=== PATIENT | male | born 1950 | race Hispanic/Latino ===

== ENCOUNTER 2025-01-18 22:33 | Inpatient (IN) | payer OTHER ==
[2025-01-18 23:48] LABS: Absolute Lymphocytes (CBC) 2.5 K/uL (0.7-4.9); Hematocrit 41.9 % (39.6-49.0); Hemoglobin 14.2 g/dL (13.6-17.9); MCH 31.2 pg (27.0-35.0); MCHC 34.0 g/dL (32.0-36.0); MCV 91.8 fL (80-100); MPV 9.3 fL (7.6-11.3); Nucleated RBC Absolute Count 0.0 (0-0); Nucleated Red Blood Cells % 0.1 % (0-0); RBC Red Blood Cell Count 4.57 M/uL (4.33-5.43); White Blood Count 7.10 thou/uL (4.3-10.9)
[2025-01-18 23:53] LABS: PT Prothrombin Time 12.1 SECONDS (10-13.0); Protime INR 1.07
[2025-01-19 00:06] LABS: ALT/SGPT 49 U/L (16-61); AST/SGOT 20 U/L (15-37); Albumin 3.3 g/dL (3.4-5.0); Albumin/Globulin Ratio 0.9 (1.1-1.8); Alkaline Phosphatase 98 U/L (45-117); Anion Gap 8.0 mEq/L (5.0-15.0); BUN Blood Urea Nitrogen 24 mg/dL (7-18); Bilirubin Indirect, Calculated 0.2 mg/dL (0.2-0.8); Globulin 3.5 g/dL (2.3-3.5); Glucose Level 91 mg/dL (74-106); Magnesium 2.3 mg/dL (1.6-2.4); NT PRO-BNP 115 pg/mL (<450); Potassium 4.0 mEq/L (3.5-5.1); Troponin High Sensitivity 8.8 pg/mL (<58.9)
[2025-01-19] MEDS ORDERED: ACETAMINOPHEN 500 MG TAB ONE (02:05)
--- NOTE | 2025-01-19 02:49 | RAD REPORT ---
EXAM: CT Cervical Spine Without Intravenous Contrast CLINICAL HISTORY: neck pain TECHNIQUE: Axial computed tomography images of the cervical spine without intravenous contrast. Sagittal and c oronal reformatted images were created and reviewed. This CT exam was performed using one or more of the following dose reduction techniques: automated exposure control, adjustment of the mA and/or kV according to patient size, and/or use of iterative reconstruction technique. COMPARISON: No relevant prior studies available. FINDINGS: Vertebrae: Grade 1 retrolisthesis of C5 on C6 and C6 on C7 and grade 1 anterolisthesis of C7 on T1, T1 on T2 and T2 on T3. No acute fracture or subluxation. Discs/spinal canal/neural foramina: Multilevel degenerative changes most pronounced, severe at C5-C 6 and C6-C7. Moderate to severe multilevel facet arthropathy most pronounced on the right at C3-C4 and on the left C4-C5. Severe foraminal compromise on the right at C2-C3 and bilaterally at C5-C6 and C6-C7. No critical canal stenosis. Soft tissues: Unremarkable. IMPRESSION: Multilevel degenerative changes. No critical canal stenosis. Electronically signed by: Aries Montes De Oca MD 01/19/2025 02:46 AM CDT Due to temporary technical issues with the PACS/REBIScan reporting system, reports are being stanislaw d by the in-house radiologist without review as a courtesy to ensure prompt reporting the interpreting radiologist is fully responsible for the content of the report. Transcribed Date/Time: 01/19/2025 2:49 AM
--- NOTE | 2025-01-19 03:16 | RAD REPORT ---
EXAM DESCRIPTION: CT CHEST ABDOMEN PELVIS ANGIOGRAPHY WITH IV CONTRAST 01/19/2025 2:44 AM CDT CLINICAL HISTORY: 74 years, Male, Chest pain. COMPARISON: CTA Chest Abdomen Pelvis 07/26/2023. PROCEDURE: Multiple transaxial tomograms of the thoracic and abdominal aorta were performed utilizing 3 mm sligh t thickness at 3 mm interval reconstruction, from the lung apices to the ischial tuberosities, before and after the administration of large bolus of IV contrast for complete opacification of the t horacic, abdominal aorta and iliac arteries. 2-D and 3-D multiplanar reformats, volume rendering technique and maximum intensity projection images were generated and reviewed. An individualized dose optimization technique, Automated Exposure Control, was utilized for the perfo rmed procedure. Findings: Thoracic aorta/great vessels: The ascending thoracic aorta demonstrate minimal dilatation measuring 4.3 x 4.1 cm on image 45. There is normal branching pattern of the great vessels with no evidence for significant proximal stenosis and/or occlusion. There is sternotomy wires with findings suggesting most likely DE [place] TORRE graft and saphenous graft with presence of stenting. Aorta/iliac arteries: There is a infrarenal abdominal aortic aneurysm below the level of the inferior mesenteric artery reilly suring 4.3 x 4.3 cm in image 132. No significant mural thrombus and/or extravasation of contrast. Right common iliac artery demonstrated dilatation measuring 2.5 as centimeters on axial image 156. Le ft common iliac artery demonstrated to be within normal limits. Minimal peripheral atheromatous plaque internal iliac arteries. The origin-proximal aspect of the celiac trunk, superior mesenteric artery demonstrate minimal periph eral atheromatous plaque with no definitive evidence for significant stenosis. There are single bilateral renal arteries with the presence of minimal peripheral atheromatous plaque at the origin/proximal aspect with no evidence for significant stenosis. Chest: Lower neck: Visualized thyroid gland and soft tissues are normal. No adenopathy. Lungs: The lung parenchyma demonstrate minimal dependent atelectatic changes posterior segment bilate ral lower lobes. No evidence of airspace or interstitial process. No significant pulmonary nodules and/or masses identified. No focal areas of consolidation. Airways: The trachea mainstem bronchus demonstrate to be unremarkable. Pleural: There are no pleural effusion. No evidence for pneumothorax. Hemidiaphragms are normally pos itioned. Mediastinum and lymph nodes: No significant mediastinal and/or hilar lymphadenopathy. The axillary re gions demonstrate to be clear. Heart: Normal size. No pericardial thickening or effusion. Coronary: Calcified coronary arteries with pericardial clips corresponding to most likely CABG. Pulmonary arteries: The central pulmonary arteries demonstrate to be within normal limits. No evidenc e for significant central filling defect to suggest pulmonary embolus. Osseous structures and chest wall: The thoracic spine demonstrate to be mildly demineralized. No evid ence for compression deformities and/or significant skeletal lesions. Abdomen and pelvis: Liver: The liver demonstrated presence of decreased attenuation corresponding to mild fatty infiltrat ion. Gallbladder: The gallbladder demonstrate to be normal. Adrenal glands: The adrenal glands demonstrate to be normal. Pancreas: The pancreas demonstrate to be normal. Spleen: The spleen demonstrate to be within normal limits. Kidneys: The kidneys demonstrate normal uptake of contrast media. There is no evidence for nephroli thiasis and/or hydronephrosis. There is a lower pole left renal cyst measuring 1.5 cm on axial image 121 GI: Grossly the unopacified stomach, small bowel and large bowel demonstrate to be within normal limi ts. No evidence for bowel dilatation and/or free air. The appendix is normal. The left-sided colon demonstrate to be decompressed with no gross abnormalities. : The urinary bladder demonstrate to be partially distended with no gross abnormalities. Genitalia: The prostate gland demonstrate to be prominent perhaps related to BPH.. Retroperitoneum: There is no retroperitoneal lymphadenopathy. There is no evidence for ascites and/or abnormal fluid collections. Bones: The bones demonstrate to be demineralized. The lumbar spine demonstrate degenerative changes t hroughout. Soft tissues: There is a right inguinal hernia containing sigmoid colon and omentum. IMPRESSION: Abdominal aortic aneurysm measuring 4.3 cm. Recommend CTA or MRA, as appropriate, in 12 months and re ferral to vascular specialist. Reference: Journal of Vascular Surgery 67.1 (2018): 2-77. J Am Obed Radiol 2013;10:789-794. 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 Mild dilatation of the ascending thoracic aorta measuring 4.3 x 4.1 cm. Right inguinal hernia containing sigmoid colon and omental. Mild fatty infiltration of the liver. Left Bosniak I benign renal cyst measuring 1.5 cm. No follow-up imaging is recommended. JACR 2018 May ; 264-273, Management of the Incidental Renal Mass on CT, [employer] 2020; 814-848, Bosniak Classification of Cystic Renal Masses, Version 2019. Prominent prostate gland perhaps related to BPH. Electronically signed by: Enrique Lyon MD 01/19/2025 03:04 AM CDT RP Due to temporary technical issues with the PACS/YourNextLeap reporting system, reports are being stanislaw d by the in-house radiologist without review as a courtesy to ensure prompt reporting the interpreting radiologist is fully responsible for the content of the report. Transcribed Date/Time: 01/19/2025 3:15 AM
--- NOTE | 2025-01-19 04:07 | EDPHYS ---
Physician Documentation [facility] Name: Wagner Powers Age: 74 yrs Sex: Male : 1950 Arrival Date: 01/18/2025 Time: 22:42 Bed 14 Private MD: ED Physician Baljinder Dumont HPI: 01/18 22:56 This 74 yrs old Male presents to ER via Unassigned with complaints of Chest sp4 Pain, Shortness Of Breath. 01/19 20:37 Patient with history of significant medical problems, history of iliac aneurysm, sp4 history of GI bleed, history of hyperlipidemia hypertension, history of CABG, history of left iliac aneurysm surgery presents with persistent chest pain. 20:38 Patient reports chest pains onset 1 week ago associated with dyspnea. sp4 Historical: - Allergies: 01/18 23:00 No Known Allergies; rg5 - PMHx: 23:00 GI Bleed; Hyperlipidemia; Hypertension; rg5 - PSHx: 23:00 Coronary artery bypass graft; rg5 - Immunization history:: Adult Immunizations up to date. - Infectious Disease History:: Denies. - Social history:: Smoking status: Patient denies any tobacco usage or history of. - Family history:: not pertinent. ROS: 01/19 20:38 Constitutional: Negative for fever, chills, and weight loss, positive for intermittent sp4 chest pains for 1 week associated with dyspnea All other systems are negative, Exam: 20:38 Constitutional: This is a well developed, well nourished patient who is awake, alert, sp4 and in no acute distress. Head/Face: Normocephalic, atraumatic. Eyes: Pupils equal round and reactive to light, extra-ocular motions intact. Lids and lashes normal. Conjunctiva and sclera are not injected. Cornea within normal limits. Periorbital areas with no swelling, redness, or edema. ENT: Nares patent. No nasal discharge, no septal abnormalities noted. Tympanic membranes are normal and external auditory canals are clear. Oropharynx with no redness, swelling, or masses, exudates, or evidence of obstruction, uvula midline. Mucous membranes moist. Neck: Trachea midline, no thyromegaly or masses palpated, and no cervical lymphadenopathy. Supple, full range of motion without nuchal rigidity, or vertebral point tenderness. Chest/axilla: Normal chest wall appearance and motion. Nontender with no deformity. No lesions are appreciated. Cardiovascular: Regular rate and rhythm with a normal S1 and S2. No gallops, murmurs, or rubs. No pulse deficits. Respiratory: Lungs have equal breath sounds bilaterally, clear to auscultation and percussion. No rales, rhonchi or wheezes noted. No increased work of breathing, no retractions or nasal flaring. Abdomen/GI: Soft, with normal bowel sounds. No distension or tympany. No guarding or rebound. No evidence of tenderness throughout. Back: No spinal tenderness. No costovertebral tenderness. Skin: Warm, dry with normal turgor. Normal color with no rashes, no lesions, and no evidence of cellulitis. MS/ Extremity: Pulses equal, no cyanosis. Neurovascular intact. Full, normal range of motion. Neuro: Awake and alert, GCS 15, oriented to person, place, time, and situation. Cranial nerves II-XII grossly intact. Motor strength 5/5 in all extremities. Sensory grossly intact. Psych: Awake, alert, with orientation to person, place and time. Behavior, mood, and affect are within normal limits 20:38 ECG was reviewed by the Attending Physician. EKG at 2253 EKG reveals normal sinus rhythm rate 63, right bundle branch block, left axis deviation. No ST elevation or depression. Left ventricular hypertrophy Vital Signs: 00:00 BP 118 / 74; Pulse 60; Resp 18; Pulse Ox 96% ; rg5 01:03 BP 123 / 75; Pulse 58; Resp 18; Pulse Ox 96% ; cp4 02:23 BP 114 / 77; Pulse 54; Resp 18; Pulse Ox 98% ; cp4 02:56 BP 123 / 72; Pulse 57; Resp 16; Temp 97.9; Pulse Ox 97% ; Pain 0/10; cg 04:00 BP 145 / 77; Pulse 56; Resp 16; Pulse Ox 97% ; cp4 05:00 BP 138 / 86; Pulse 59; Resp 16; Pulse Ox 99% ; cp4 02:56 Pain Scale: Adult cg Langtry Coma Score: 20:38 Eye Response: spontaneous(4). Motor Response: obeys commands(6). Verbal Response: sp4 oriented(5). Total: 15. MDM: 00:58 Medical Screening Exam initiated sp4 04:07 ED course: CTA - IMPRESSION: Abdominal aortic aneurysm measuring 4.3 cm. Recommend CTA sp4 or MRA, as appropriate, in 12 months and referral to vascular specialist. Reference: Journal of Vascular Surgery 67.1 (2018): 2-77. J Am Obed Radiol 2013;10:789-794. 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 Mild dilatation of the ascending thoracic aorta measuring 4.3 x 4.1 cm. Right inguinal hernia containing sigmoid colon and omental. Mild fatty infiltration of the liver. Left Bosniak I benign renal cyst measuring 1.5 cm. No follow-up imaging is recommended. Prominent prostate gland perhaps related to BPH. . ED course: COMPARISON: No relevant prior studies available. FINDINGS: Vertebrae: Grade 1 retrolisthesis of C5 on C6 and C6 on C7 and grade 1 anterolisthesis of C7 on T1, T1 on T2 and T2 on T3. No acute fracture or subluxation. Discs/spinal canal/neural foramina: Multilevel degenerative changes most pronounced, severe at C5-C6 and C6-C7. Moderate to severe multilevel facet arthropathy most pronounced on the right at C3-C4 and on the left C4-C5. Severe foraminal compromise on the right at C2-C3 and bilaterally at C5-C6 and C6-C7. No critical canal stenosis. Soft tissues: Unremarkable. IMPRESSION: Multilevel degenerative changes. No critical canal stenosis.. 20:38 Differential diagnosis: acute myocardial infarction, acute pericarditis, anxiety, sp4 coronary artery disease chest wall pain, congestive heart failure esophagitis, gastritis, gastroesophageal reflux disease (GERD), herpes zoster. HEART Score: History: Moderately Suspicious (1), ECG: Non specific repolarization disturbance / LBTB / PM (1), Age: > or = 65 years (2), Risk Factors: > or = 3 Risk factors for atherosclerotic disease (2), Troponin: < or = 1 x Normal Limit (0), Total Score = 6. The patient was not given aspirin in the Emergency Department. Patient reports taking aspirin within the past 24 hours. Data reviewed: vital signs, nurses notes, old medical records, lab test result(s), EKG, radiologic studies. Consideration of Admission/Observation Patient was admitted/placed on observation. Escalation of care including admission/observation considered. Management of patient was discussed with the following: Hospitalist: Jb REID . 01/18 22:57 Order name: Basic Metabolic Panel; Complete Time: 01:06 sp4 01/18 22:57 Order name: CBC with Diff; Complete Time: 01:06 sp4 01/18 22:57 Order name: LFT's; Complete Time: 01:06 sp4 01/18 22:57 Order name: Magnesium; Complete Time: 01:06 sp4 01/18 22:57 Order name: NT PRO-BNP; Complete Time: 01:06 sp4 01/18 22:57 Order name: PT-INR; Complete Time: 01:06 sp4 01/18 22:57 Order name: Troponin HS; Complete Time: 01:06 sp4 01/19 04:45 Order name: CBC with Automated Diff EDMS 01/19 04:45 Order name: CBC with Automated Diff EDMS 01/19 04:45 Order name: Comprehensive Metabolic Panel EDMS 01/19 04:45 Order name: Comprehensive Metabolic Panel EDMS 01/19 04:45 Order name: Troponin High Sensitivity EDMS 01/19 04:45 Order name: Troponin High Sensitivity EDMS 01/19 04:45 Order name: Troponin High Sensitivity EDMS 01/19 04:45 Order name: Troponin High Sensitivity EDMS 01/19 04:45 Order name: Troponin High Sensitivity EDMS 01/19 04:45 Order name: Troponin High Sensitivity EDMS 01/18 22:57 Order name: CT Aorta for Dissection; Complete Time: 03:53 sp4 01/18 22:57 Order name: CT C Spine; Complete Time: 03:53 sp4 01/18 22:57 Order name: Cardiac monitoring; Complete Time: 23:23 sp4 01/18 22:57 Order name: EKG - Nurse/Tech; Complete Time: 23:23 sp4 01/18 22:57 Order name: IV Saline Lock; Complete Time: 23:23 sp4 01/18 22:57 Order name: Labs collected and sent; Complete Time: 23:23 sp4 01/18 22:57 Order name: O2 Per Protocol; Complete Time: 23:22 sp4 01/18 22:57 Order name: O2 Sat Monitoring; Complete Time: 23:22 sp4 EC:38 Rate is 63 beats/min. Rhythm is regular, Normal Sinus Rhythm. Left axis deviation sp4 noted. IL interval is normal. QRS interval is prolonged. QT interval is normal. No Q waves. T waves are Normal. No ST changes noted. Clinical impression: No evidence of ischemia. Interpreted by me. Reviewed by me. Administered Medications: 01/18 23:21 Drug: NS 0.9% IV 1000 ml IV at 125 ml/hr Per protocol; to be given at 125 ml / hour rg5 Route: IV; Rate: 125 ml/hr; Site: right forearm; 01/19 05:30 Follow up: Response: No adverse reaction; IV Status: Completed infusion cp4 02:13 Drug: Acetaminophen PO 1000 mg PO once Route: PO; cg 04:55 Follow up: Response: No adverse reaction; Pain is decreased cp4 Disposition Summary: 01/19/25 04:06 Hospitalization Ordered Notes: Hospitalization Status: Inpatient Admission sp4 Provider: Angel Muhammad sp4 Location: Telemetry/[facility]Sur (Inpatient) sp4 Condition: Stable sp4 Problem: new sp4 Symptoms: have improved sp4 Bed/Room Type: Standard sp4 Room Assignment: 428(01/19/25 04:45) cg Diagnosis - Unstable angina sp4 Forms: - Medication Reconciliation Form sp4 - SBAR form sp4 - Leadership Thank You Letter sp4 Signatures: Dispatcher [employer] Rosa Rodriguez RN RN cg Cyndie Vail RN RN vc1 Baljinder Dumont MD MD sp4 Ian Clark RN RN rg5 Caryl Santana cp4 Corrections: (The following items were deleted from the chart) 01/18 22:57 22:57 BASIC METABOLIC PANEL+C.LAB.BRZ ordered. EDMS EDMS 22:57 22:57 CBC+H.LAB.BRZ ordered. EDMS EDMS 22:57 22:57 HEPATIC FUNCTION+C.LAB.BRZ ordered. EDMS EDMS 22:57 22:57 MAGNESIUM+C.LAB.BRZ ordered. EDMS EDMS 22:57 22:57 PROBNP+C.LAB.BRZ ordered. EDMS EDMS 22:57 22:57 PROTIME (+INR)+COAG.LAB.BRZ ordered. EDMS EDMS 22:57 22:57 Troponin High Sensitivity+C.LAB.BRZ ordered. EDMS EDMS 22:57 22:57 Angio Aorta For Dissection+CT.RAD.BRZ ordered. EDMS EDMS 22:57 22:57 C Spine Wo Con+CT.RAD.BRZ ordered. EDMS EDMS 01/19 04:45 04:06 sp4 cg
--- NOTE | 2025-01-19 04:07 | ER ---
Nurse's Notes [facility] Name: Wagner Powers Age: 74 yrs Sex: Male : 1950 Arrival Date: 01/18/2025 Time: 22:42 Bed 14 Private MD: Diagnosis: Unstable angina Presentation: 01/18 22:55 Chief complaint: Patient states: patient compliants of chest pain that is getting worst rg5 everyday for a week now and also feels short of breath. 22:55 Coronavirus screen: Client denies travel out of the [place] in the last 14 days. Ebola rg5 Screen: Patient negative for fever greater than or equal to 101.5 degrees Fahrenheit, and additional compatible Ebola Virus Disease symptoms Patient denies exposure to infectious person. Patient denies travel to an Ebola-affected area in the 21 days before illness onset. Initial Sepsis Screen: Does the patient meet any 2 criteria? No. Patient's initial sepsis screen is negative. Does the patient have a suspected source of infection? No. Patient's initial sepsis screen is negative. Risk Assessment: Do you want to hurt yourself or someone else? Patient reports no desire to harm self or others. Onset of symptoms was January 18, 2025. 22:55 Method Of Arrival: Ambulatory rg5 22:55 Acuity: ANABELL 3 rg5 Triage Assessment: 23:00 General: Appears in no apparent distress. Behavior is calm, cooperative, appropriate rg5 for age. Pain: Complains of pain in chest Quality of pain is described as dull, pressure, Pain began gradually. EENT: No deficits noted. Neuro: Level of Consciousness is awake, alert, obeys commands, Oriented to person, place, time, situation. Cardiovascular: Reports chest pain, shortness of breath. Respiratory: Airway is patent Respiratory effort is even, unlabored. GI: Abdomen is flat, non-distended. : No signs and/or symptoms were reported regarding the genitourinary system. Derm: Skin is intact, Skin is dry, Skin is normal. Musculoskeletal: Circulation, motion, and sensation intact. Range of motion: intact in all extremities. Historical: - Allergies: 23:00 No Known Allergies; rg5 - PMHx: 23:00 GI Bleed; Hyperlipidemia; Hypertension; rg5 - PSHx: 23:00 Coronary artery bypass graft; rg5 - Immunization history:: Adult Immunizations up to date. - Infectious Disease History:: Denies. - Social history:: Smoking status: Patient denies any tobacco usage or history of. - Family history:: not pertinent. Screenin:00 [facility] ED Fall Risk Assessment (Adult) History of falling in the last 3 months, rg5 including since admission No falls in past 3 months (0 pts) Confusion or Disorientation No (0 pts) Intoxicated or Sedated No (0 pts) Impaired Gait No (0 pts) Mobility Assist Device Used No (0 pt) Altered Elimination No (0 pt) Score/Fall Risk Level 0 - 2 = Low Risk Oriented to surroundings, Maintained a safe environment. Abuse screen: Denies threats or abuse. Nutritional screening: No deficits noted. Tuberculosis screening: No symptoms or risk factors identified. Assessment: 23:00 Pain: Complains of pain in chest Pain does not radiate. Quality of pain is described as rg5 aching. 01/19 00:00 Reassessment: No changes from previously documented assessment. Patient and/or family rg5 updated on plan of care and expected duration. Pain level reassessed. Patient is alert, oriented x 3, equal unlabored respirations, skin warm/dry/pink. 01:02 Reassessment: Patient appears in no apparent distress at this time. No changes from cp4 previously documented assessment. Patient and/or family updated on plan of care and expected duration. Pain level reassessed. Patient is alert, oriented x 3, equal unlabored respirations, skin warm/dry/pink. 02:00 Reassessment: Patient appears in no apparent distress at this time. Patient and/or cp4 family updated on plan of care and expected duration. Pain level reassessed. Patient is alert, oriented x 3, equal unlabored respirations, skin warm/dry/pink. 03:00 Reassessment: Patient appears in no apparent distress at this time. Patient and/or cp4 family updated on plan of care and expected duration. Pain level reassessed. Patient is alert, oriented x 3, equal unlabored respirations, skin warm/dry/pink. Vital Signs: 00:00 BP 118 / 74; Pulse 60; Resp 18; Pulse Ox 96% ; rg5 01:03 BP 123 / 75; Pulse 58; Resp 18; Pulse Ox 96% ; cp4 02:23 BP 114 / 77; Pulse 54; Resp 18; Pulse Ox 98% ; cp4 02:56 BP 123 / 72; Pulse 57; Resp 16; Temp 97.9; Pulse Ox 97% ; Pain 0/10; cg 04:00 BP 145 / 77; Pulse 56; Resp 16; Pulse Ox 97% ; cp4 05:00 BP 138 / 86; Pulse 59; Resp 16; Pulse Ox 99% ; cp4 02:56 Pain Scale: Adult cg Kaiser Coma Score: 20:38 Eye Response: spontaneous(4). Motor Response: obeys commands(6). Verbal Response: sp4 oriented(5). Total: 15. ED Course: 01/18 22:55 Patient arrived in ED. rg5 22:56 Baljinder Dumont MD is Attending Physician. sp4 23:00 Arm band placed on. EKG completed in triage. Results shown to MD. rg5 23:00 Patient has correct armband on for positive identification. Bed in low position. Call rg5 light in reach. Side rails up X 1. Adult w/ patient. Client placed on continuous cardiac and pulse oximetry monitoring. NIBP monitoring applied. monitoring and evaluation advisor on. Pulse ox on. NIBP on. Door closed. Noise minimized. Warm blanket given. 23:00 No provider procedures requiring assistance completed. Inserted saline lock: 22 gauge rg5 in right forearm, using aseptic technique. Blood collected. Flushed with 10 mL NS. Patient maintains SpO2 saturation greater than 95% on room air. 23:21 Ian Clark, RN is Primary Nurse. rg5 01/19 00:10 Triage completed. rg5 01:00 CT Aorta for Dissection In Process Unspecified. EDMS 01:00 CT C Spine In Process Unspecified. EDMS 04:06 Angel Muhammad MD is Hospitalizing Provider. sp4 05:29 Provided Education on: admission. cp4 05:29 Patient admitted, IV remains in place. cp4 Administered Medications: 01/18 23:21 Drug: NS 0.9% IV 1000 ml IV at 125 ml/hr Per protocol; to be given at 125 ml / hour rg5 Route: IV; Rate: 125 ml/hr; Site: right forearm; 01/19 05:30 Follow up: Response: No adverse reaction; IV Status: Completed infusion cp4 02:13 Drug: Acetaminophen PO 1000 mg PO once Route: PO; rodrigo 04:55 Follow up: Response: No adverse reaction; Pain is decreased cp4 Medication: 01/18 23:00 VIS not applicable for this client. rg5 Outcome: 01/19 04:06 Decision to Hospitalize by Provider. sp4 05:29 Admitted to Med/surg accompanied by nurse, via stretcher, room 428, with chart, cp4 05:29 Condition: stable 05:29 Instructed on the need for admit, 05:29 Patient left the ED. vc1 Signatures: Dispatcher [employer] Rosa Rodriguez, RN RN Cyndie Neely RN RN vc1 Baljinder Dumont MD MD sp4 Caryl Santana cp4 Ian Clark, RN RN rg5
[2025-01-19] MEDS ORDERED: ONDANSETRON 4 MG/2 ML VIAL IV PRN (04:41)
[2025-01-19 05:22] VITALS: BMI 25.8
[2025-01-19] MEDS: ACETAMINOPHEN 325 MG TABLET PO PRN (05:55)
--- NOTE | 2025-01-19 13:43 | P.CNS ---
Date of Consult: 01/19/25 Reason for Consult: He has been Requesting Physician: Froylan Muhammad Chief Complaint: Chest pain History of Present Illness: 74-year-old male with PMH HTN, HLD, AAA, CAD s/p 3vCABG (9094) and [place] (2021) s/p PCI x 1, who presents with chest pain. Patient reports episode of chest pain yesterday, intermittent, left-sided, nonradiating, which occurred while he was walking. Pain lasted for 30-45 minutes. Now chest pain-free. No shortness of breath. High-sensitivity cardiac troponin and NT proBNP normal. ECG showed SR with RBBB. 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 Patient's family is at bedside. Patient follows up with a railroad crane operator at [facility] in [place], [place] (Dr. Acosta). Allergies No Known Allergies Allergy (Verified 06/24/15 11:32) Home medications list reviewed: Yes Home Medications: Metoprolol Tartrate [Lopressor*] 25 mg PO BID 06/23/15 Aspirin [Children's Aspirin] 81 mg PO DAILY 01/19/25 Clopidogrel Bisulfate [Plavix] 75 mg PO DAILY 01/19/25 Simvastatin 80 mg PO BEDTIME 01/19/25 lisinopriL [Lisinopril] 5 mg PO DAILY 01/19/25 methocarbamoL [Robaxin] 750 mg PO BIDP PRN 01/19/25 - Past Medical/Surgical History Diabetic: No -: hypertension -: hyperlipidemis -: Triple bypass 1994 -: right knee ligament surgery -: heart stents - Social History Smoking Status: Unknown if ever smoked Alcohol use: No CD- Drugs: No Caffeine use: Yes Place of Residence: Home Physical Examination Temp Pulse Resp BP Pulse Ox 97.7 F 61 18 149/82 H 97 01/19/25 12:00 01/19/25 12:00 01/19/25 12:00 01/19/25 12:00 01/19/25 12:00 General: In no apparent distress, Oriented x3 HEENT: Atraumatic, Normocephalic, EOMI Neck: 2+ carotid pulse no bruit, JVD not distended Respiratory: Clear to auscultation bilaterally Cardiovascular: No edema, Regular rate/rhythm, Normal S1 S2, Systolic murmur Capillary refill: <2 Seconds Gastrointestinal: Normal bowel sounds Musculoskeletal: No clubbing, No swelling Integumentary: No rashes Neurological: Normal speech Laboratory Data (last 24 hrs) 01/18/25 01/18/25 01/18/25 23:15 23:15 23:15 WBC 7.10 Hgb 14.2 Hct 41.9 Plt Count 154 PT 12.1 INR 1.07 Sodium 137 Potassium 4.0 BUN 24 H Creatinine 1.10 Glucose 91 Magnesium 2.3 Total Bilirubin 0.4 AST 20 ALT 49 Alkaline Phosphatase 98 Imagings Data: ECG and imaging reviewed - Problems (1) Coronary artery disease involving [place] heart with angina pectoris Current Visit: Yes Status: Acute Plan: Patient has history of significant CAD including 3vCABG (1994) and [place] (2021) s/p PCI x 1. Details of his prior interventions unknown (follows up with a railroad crane operator at [facility], Dr. Acosta). High-sensitivity cardiac troponin negative. Continue DAPT with aspirin 81 mg daily and clopidogrel 75 mg daily. Continue statin. Given his risk factors and likely cardiac etiology of his chest discomfort, recommend ischemia guided approach with nuclear stress test. Further recommendations pending results of stress test. Obtain echocardiogram. Qualifiers: Coronary Disease-Associated Artery/Lesion type: unspecified vessel or lesion type Qualified Code(s): I25.119 - Atherosclerotic heart disease of [place] coronary artery with unspecified angina pectoris (2) Hypertension Current Visit: Yes Status: Chronic Plan: Blood pressure is reasonably controlled. Continue home antihypertensive medications, adjust as needed based on blood pressure and tolerance. Blood pressure goal <130/80 mmHg. Qualifiers: Hypertension type: primary hypertension Qualified Code(s): I10 - Essential (primary) hypertension (3) Hyperlipidemia Current Visit: Yes Status: Chronic Plan: Continue statin. Goal LDL-C <70 mg/dL for high risk ASCVD. (4) Aortic aneurysm Current Visit: Yes Status: Chronic Plan: AAA 4.[address] also notable for ascending aortic dilation 4.3 cm and right KASIE aneurysm 2.5 cm. Continue to monitor clinically and with serial imaging as indicated. Continue statin. (5) Cardiac murmur Current Visit: Yes Status: Acute Plan: Systolic murmur on exam. Follow-up echocardiogram.
--- NOTE | 2025-01-19 15:29 | RAD REPORT ---
EXAMINATION: MRI CERVICAL SPINE WITHOUT CONTRAST CLINICAL INDICATION: Male, 74 years old. Radiculopathy; cord compression TECHNIQUE: Multiplanar multisequence MR images were obtained of the cervical spine without intravenou s contrast. Unless otherwise specified, incidental findings do not require dedicated imaging follow-up. [id number]. COMPARISON: CT same day FINDINGS: ALIGNMENT: Trace anterolisthesis of C4 on C5. Trace retrolisthesis of C5 on C6. 2 mm of retrolisthesi s of C6 on C7. Anterolisthesis of C7 on T1 of 2 mm. BONE: Mild endplate edema is present at the C5-6 and C6-7 levels. CORD: The cervical spinal cord is normal in size, contour and signal intensity. BRAIN: The included intracranial structures are grossly normal. The craniocervical junction is normal . SOFT TISSUE: Small simple appearing fluid collection within the paraspinal soft tissues along the C6 posterior spinous process. This is of doubtful significance. EVALUATION OF THE INDIVIDUAL LEVELS: C2-C3: Uncovertebral joint hypertrophy contributes to at least mild to moderate right neural foramina l narrowing. Left neural foramen is adequate. No central spinal stenosis. C3-C4: Uncovertebral joint hypertrophy and small posterior disc osteophyte complex results in at leas t moderate if not severe right neural foraminal narrowing. The left neural foramen is probably mildly narrowed. No significant central spinal stenosis. C4-C5: Posterior disc osteophyte complex and uncovertebral joint hypertrophy results in mild left niki ral foraminal narrowing. The right neural foramen is likely adequate. Moderate central spinal stenosis. C5-C6: Posterior disc osteophyte complex and uncovertebral joint hypertrophy results in probably ky re bilateral neural foraminal narrowing. Central spinal stenosis is mild to moderate. C6-C7: Posterior disc osteophyte complex and uncovertebral joint hypertrophy results in severe right and at least moderate left neural foraminal narrowing and moderate central spinal stenosis. C7-T1: Anterolisthesis of C7 on T1 with some uncovering of the disc results in mild central spinal st enosis. IMPRESSION: Multilevel cervical spondylosis with varying degrees of neural foraminal narrowing and central spinal stenosis. No high-grade central spinal stenosis identified. Stenosis is at most moderate at C4-5 and C6-7. No abnormal cord signal. Neural foraminal narrowing is most pronounced on the right at C3-4 and bilaterally at C5-6 and C6-7 levels. These levels would be the most likely source of a radiculopathy.
--- NOTE | 2025-01-19 17:45 | P.HP ---
Certification for Inpatient Patient admitted to: Observation With expected LOS: <2 Midnights Patient will require the following post-hospital care: None Practitioner: I am a practitioner with admitting privileges, knowledge of patient current condition, hospital course, and medical plan of care. Services: Services provided to patient in accordance with Admission requirements found in Title 42 Section 412.3 of the Code of Federal Regulations Patient History Date of Service: 01/19/25 Reason for admission: Chest pain History of Present Illness: Patient is a 74-year-old gentleman who is well-known to me from recent hospitalizations for chest discomfort. Patient was having radiation down his left arm and up the left side of the neck. Patient has history of coronary artery disease and has had a prior stent placed. Patient also has been dealing with issues with musculoskeletal pain. 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 Patient has CT angio for aortic dissection which was negative. CT of the C-spine is suggested of neuropathy. Will go ahead and get an MRI of the C-spine. Will also get cardiology consult. Patient will be admitted for inpatient hospitalization Allergies No Known Allergies Allergy (Verified 06/24/15 11:32) Home Medications: Metoprolol Tartrate [Lopressor*] 25 mg PO BID 06/23/15 Aspirin [Children's Aspirin] 81 mg PO DAILY 01/19/25 Clopidogrel Bisulfate [Plavix] 75 mg PO DAILY 01/19/25 Simvastatin 80 mg PO BEDTIME 01/19/25 lisinopriL [Lisinopril] 5 mg PO DAILY 01/19/25 methocarbamoL [Robaxin] 750 mg PO BIDP PRN 01/19/25 - Past Medical/Surgical History Has patient received pneumonia vaccine in the past: Yes Diabetic: No -: hypertension -: hyperlipidemis -: CAD w/ stent -: Triple bypass 1994 -: right knee ligament surgery -: heart stents - Family History Father Family History: Reviewed- Non-Contributory - Social History Smoking Status: Former smoker Alcohol use: No CD- Drugs: No Caffeine use: Yes Place of Residence: Home Review of Systems 10-point ROS is otherwise unremarkable Physical Examination - Vital Signs Temperature: 97.7 F Blood Pressure: 135/75 Pulse: 71 Respirations: 18 Pulse Ox (%): 96 - Physical Exam General: Alert, In no apparent distress, Oriented x3 HEENT: Atraumatic, PERRLA, Mucous membr. moist/pink, EOMI, Sclerae nonicteric Neck: Supple, 2+ carotid pulse no bruit, No LAD, Without JVD or thyroid abnormality Respiratory: Clear to auscultation bilaterally, Normal air movement Cardiovascular: Regular rate/rhythm, Normal S1 S2, No murmurs Gastrointestinal: Normal bowel sounds, Soft and benign, Non-distended, No tenderness Musculoskeletal: No clubbing, No swelling, No tenderness Integumentary: No rashes Neurological: Normal gait, Normal speech, Normal strength at 5/5 x4 extr, Normal tone, Sensation intact, Cranial nerves 3-12 intact, Normal affect Lymphatics: No axilla or inguinal lymphadenopathy - Studies Laboratory Data (last 24 hrs) 01/18/25 01/18/25 01/18/25 23:15 23:15 23:15 WBC 7.10 Hgb 14.2 Hct 41.9 Plt Count 154 PT 12.1 INR 1.07 Sodium 137 Potassium 4.0 BUN 24 H Creatinine 1.10 Glucose 91 Magnesium 2.3 Total Bilirubin 0.4 AST 20 ALT 49 Alkaline Phosphatase 98 Assessment & Plan - Problems (Diagnosis) (1) Chest pain, rule out acute myocardial infarction Current Visit: Yes Status: Acute (2) Coronary artery disease involving [place] heart with angina pectoris Current Visit: Yes Status: Acute Qualifiers: Coronary Disease-Associated Artery/Lesion type: unspecified vessel or lesion type Qualified Code(s): I25.119 - Atherosclerotic heart disease of [place] coronary artery with unspecified angina pectoris (3) Aortic aneurysm Current Visit: Yes Status: Chronic (4) Hyperlipidemia Current Visit: Yes Status: Chronic (5) Hypertension Current Visit: Yes Status: Chronic Qualifiers: Hypertension type: primary hypertension Qualified Code(s): I10 - Essential (primary) hypertension - Plan Plan: 1. Chest pain rule out acute coronary syndrome; continue with serial troponins and EKG. Cardiology recommending stress test prior to discharge. Echocardiogram is pending as well. Patient will be admitted for inpatient hospitalization 2. History of neck pain which symptoms sound like radiculopathy with electricity type shooting pain down the left arm. MRI of C-spine is pending. 3. History of aneurysm of the abdominal aorta as well as ascending aorta and iliac artery. Will continue with conservative management 4. GI DVT prophylaxis Discharge Plan: Home Plan to discharge in: Greater than 2 days - Advance Directives Does patient have a Living Will: No Does patient have a Durable POA for Healthcare: No - Code Status/Comfort Care Code Status Assessed: Yes Code Status: Full Code Critical Care: No Time Spent Managing PTS Care (In Minutes): 45
[2025-01-19] MEDS: METOPROLOL TAR 25 MG TAB PO SCH (20:58)
[2025-01-19] MEDS: ATORVASTATIN 40 MG TAB PO SCH (20:58)
[2025-01-19] MEDS ORDERED: HOME MED 1 EA UNK (Simvastatin [Simvastatin] 80 MG Tablet) PO SCH (21:00)
[2025-01-20 07:05] LABS: Absolute Lymphocytes (CBC) 1.9 K/uL (0.7-4.9); Hematocrit 44.0 % (39.6-49.0); Hemoglobin 15.2 g/dL (13.6-17.9); MCH 31.4 pg (27.0-35.0); MCHC 34.5 g/dL (32.0-36.0); MCV 90.9 fL (80-100); MPV 9.1 fL (7.6-11.3); Nucleated RBC Absolute Count 0.0 (0-0); Nucleated Red Blood Cells % 0.0 % (0-0); RBC Red Blood Cell Count 4.84 M/uL (4.33-5.43); White Blood Count 7.90 thou/uL (4.3-10.9)
[2025-01-20 07:36] LABS: ALT/SGPT 38.0 U/L (16-61); AST/SGOT 16.0 U/L (15-37); Albumin 3.3 g/dL (3.4-5.0); Albumin/Globulin Ratio 0.9 (1.1-1.8); Alkaline Phosphatase 89.0 U/L (45-117); Anion Gap 7.1 mEq/L (5.0-15.0); BUN Blood Urea Nitrogen 18.0 mg/dL (7-18); Globulin 3.5 g/dL (2.3-3.5); Glucose Level 94.0 mg/dL (74-106); Potassium 4.1 mEq/L (3.5-5.1)
[2025-01-20] MEDS: CLOPIDOGREL 75 MG TABLET PO SCH (09:00)
[2025-01-20] MEDS: ASPIRIN 81 MG CHEWABLE TABLET PO SCH (09:00)
[2025-01-20] MEDS ORDERED: REGADENOSON 0.4 MG/5 ML SYR IV ONE (10:08)
--- NOTE | 2025-01-20 11:02 | P.PN ---
Subjective Date of Service: 01/20/25 Chief Complaint: Chest pain Doing well. No active chest pain. Family at bedside. Stress test pending today. Physical Examination - Vital Signs Temperature: 97.5 F Blood Pressure: 143/83 Pulse: 72 Respirations: 16 Pulse Ox (%): 94 - Physical Exam General: Alert, In no apparent distress, Oriented x3 HEENT: Atraumatic, Normocephalic, EOMI Neck: Supple, JVD not distended Respiratory: Clear to auscultation bilaterally Cardiovascular: No edema, Normal pulses, Regular rate/rhythm, Normal S1 S2, Systolic murmur Capillary refill: <2 Seconds Gastrointestinal: Normal bowel sounds Musculoskeletal: No clubbing, No swelling Integumentary: No rashes Neurological: Normal speech - Studies Reviewed Imagings Data: Reviewed Assessment And Plan - Current Problems (Diagnosis) (1) Coronary artery disease involving [place] heart with angina pectoris Current Visit: Yes Status: Acute Plan: Patient has history of significant CAD including 3vCABG (1994) and [place] (2021) s/p PCI x 1. Details of his prior interventions unknown (follows up with a controls project engineer at [facility], Dr. Acosta). High-sensitivity cardiac troponin negative. Continue DAPT with aspirin 81 mg daily and clopidogrel 75 mg daily. Continue statin. Given his risk factors and likely cardiac etiology of his chest discomfort, recommend ischemia guided approach with nuclear stress test. Follow-up nuclear stress test and echocardiogram. Qualifiers: Coronary Disease-Associated Artery/Lesion type: unspecified vessel or lesion type Qualified Code(s): I25.119 - Atherosclerotic heart disease of [place] coronary artery with unspecified angina pectoris (2) Hypertension Current Visit: Yes Status: Chronic Plan: Blood pressure is reasonably controlled. Continue home antihypertensive medications, adjust as needed based on blood pressure and tolerance. Blood pressure goal <130/80 mmHg. Qualifiers: Hypertension type: primary hypertension Qualified Code(s): I10 - Essential (primary) hypertension (3) Hyperlipidemia Current Visit: Yes Status: Chronic Plan: Continue statin. Goal LDL-C <70 mg/dL for high risk ASCVD. (4) Aortic aneurysm Current Visit: Yes Status: Chronic Plan: AAA 4.[address] also notable for ascending aortic dilation 4.3 cm and right KASIE aneurysm 2.5 cm. Continue to monitor clinically and with serial imaging as indicated. Continue statin. (5) Cardiac murmur Current Visit: Yes Status: Acute Plan: Systolic murmur on exam. Follow-up echocardiogram.
--- NOTE | 2025-01-20 11:22 | RAD REPORT ---
EXAM: Nuclear medicine cardiac perfusion examination with ejection fraction HISTORY: Chest pain chest pain TECHNIQUE: Rest images: 9.9 mCi technetium 99m sestamibi Stress images: 30.4 mCi of technetium 99m sestamibi COMPARISON: None. FINDINGS: Tomographic images: There is evidence of moderate-sized area of mild stress-induced ischemia involvin g the LV apex and lateral wall. Fixed defect along the inferior wall with rest and stress probably related to scarring from prior infarction. Ejection fraction of 60%. EDV: 80 mL ESV: 32 mL LHR: 0.31 TID: 0.98 IMPRESSION: Mild stress-induced ischemia suspected involving the LV apex and lateral wall. Fixed defect is seen along the inferior wall favored to represent scarring from prior infarct.
--- NOTE | 2025-01-20 14:33 | TREADPHA ---
DX: CHEST PAIN Date of Study: 01/20/2025 Ht: 5' 8 " Wt: 170 lb 0 oz Consulting Physician: ARACELIS BUTT MD MEDICATIONS: TYLENOL, ASPIRIN, LIPITOR, PLAVIX, PRINIVIL, ROBAXIN ,LOPRESSOR, ZOFRAN HISTORY: 74 YEAR OLD MALE WITH COMPLIANTS OF CHEST PAIN. HISTORY OF TRIPPLE BYPASS, HYPERTENSION AND HYPERLIPIDEMIA PHYSICIAL EXAMINATION: RESTING B.P.: 149/95 RESTING H.R.: 81 RESTING EKG: SINUS RHYTHM PROTOCOL: PHARMACOLOGIC EXERCISE TIME: 3:30 B.P. AT PEAK STRESS: 145/88 IMPRESSION: LEXISCAN STRESS TEST PERFORMED PER PROTOCOL. CARDIOLITE INJECTED PER PROTOCOL (SEE NUCLEAR MEDICINE REPORT). NO COMPLAINTS OF CHEST PAIN, NO COMPLAINTS OF SHORTNESS OF BREATH. NO VENTRICULAR TACHYCARDIA, NO SUPRAVENTRICULAR TACHYCARDIA. PREMATURE VENTRICULAR COMPLEX NOTED DURING STRESS AND POST STRESS IN QUINTAGEMINY PATTERN.
[2025-01-21] MEDS ORDERED: NA CHLORIDE 0.9% 500 ML ONE ×2 (07:00→10:02)
[2025-01-21] MEDS ORDERED: NITROGLYCERIN/D5W 50 MG/250 ML BTL IV ONE (07:17)
[2025-01-21] MEDS ORDERED: HEPARIN 10,000 UNIT/10 ML VIAL IV ONE (07:17)
[2025-01-21] MEDS ORDERED: LIDOCAINE 1% 20 ML MDV ONE (07:17)
[2025-01-21] MEDS ORDERED: HEPA 1000U/500MLS 2,000 UNIT/1,000 ML BAG IV ONE (07:17)
[2025-01-21] MEDS ORDERED: HEPARIN 5000 UNIT/ML 1 ML VIAL ONE (07:18)
[2025-01-21] MEDS ORDERED: ATROPINE SULF 1 MG/10 ML SYR IV ONE (07:18)
[2025-01-21] MEDS ORDERED: CLOPIDOGREL 75 MG TABLET ONE (07:18)
[2025-01-21] MEDS ORDERED: VERAPAMIL HCL 10 MG/4 ML VIAL IV ONE (07:18)
[2025-01-21] MEDS ORDERED: TICAGRELOR 90 MG TABLET PO ONE (07:19)
[2025-01-21] MEDS ORDERED: FENTANYL CITR 100 MCG/2 ML ONE (07:24)
--- NOTE | 2025-01-21 07:24 | P.PN ---
Date of Service: 01/21/25 Subjective: Physical Exam: GEN: Alert, oriented, NAD CV: Regular rate and rhythm, systolic murmur Pulm:Nonlabored respirations on room air, clear bilaterally ABD: soft, nontender, nondistended Neuro: Normal speech, normal affect Problem List: Chest pain CAD s/p CABG (1994) and PCI (2021) Hypertension Hyperlipidemia Hx AAA, 4.3 cm Troponins negative. EKG without ischemic changes Cardiology consulted and recommended stress test given risk factors Stress test (01/20): Mild stress-induced ischemia suspected involving the LV apex and lateral wall. +Fixed defect is seen along the inferior wall favored to represent scarring from prior infarct. NPO for C to further evaluate asa 81mg, Plavix, statin resume home metoprolol, lisinopril Labs unremarkable VTE: Code: Dispo: Time Spent Managing Pts Care (In Minutes): 55
[2025-01-21] MEDS ORDERED: MIDAZOLAM HCL 2 MG/2 ML INJ ONE (07:25)
[2025-01-21 09:27] VITALS: TEMP 98
[2025-01-21 12:07] VITALS: BP 107/75; O2SAT 94
[2025-01-21] MEDS: TICAGRELOR 90 MG TABLET PO ONE (12:28)
--- NOTE | 2025-01-21 12:40 | P.DS ---
Admission Date: 01/19/25 Discharge Date: 01/21/25 Disposition: ROUTINE DISCHARGE Discharge Condition: GOOD Reason for Admission: Chest pain Consultations: Cardiology - Dr. Whipple Brief History of Present Illness: 74yo M, PMH: CAD s/p 3vCABG 1994, HTN, HLD, Patient presents to ED for chest discomfort. Patient was having radiation down his left arm and up the left side of the neck. Patient has history of coronary artery disease and has had a prior stent placed. Patient also has been dealing with issues with musculoskeletal pain. 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 Patient has CT angio for aortic dissection which was negative. CT of the C-spine is suggested of neuropathy. Will go ahead and get an MRI of the C-spine. Will also get cardiology consult. Patient will be admitted for inpatient hospitalization Hospital Course: Problem List: CAD s/p CABG (1994) and PCI (2021) Hypertension Hyperlipidemia Hx AAA, 4.3 cm Physician discharge instructions: Patient presented with left-sided chest discomfort. Troponins were negative x4. EKG in ED showed SR with RBBB. 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 Cardiology was consulted. Dr. Whipple had recommended stress test to further evaluate given significant cardiac history including 3vCABG (1994), PCI (2021), and other high risk factors. Stress test performed 01/20 showed mild stress-induced ischemia suspected involving the LV apex and lateral wall. +Fixed defect is seen along the inferior wall favored to represent scarring from prior infarct. Patient was made NPO and taken to pathology laboratory aide for left heart catheterization on 01/21 however procedure was aborted. During the procedure SVG-OM had severe in- stent restenosis and covered a large territory. Dr. Whipple recommended transfer to tertiary level of care facility for high risk PCI as we do not have embolic protection device that is required for this procedure in our pathology laboratory aide. Initiated transfer to [facility] on 01/21 for high risk PCI. [facility] Coronary Findings: - Right dominant system. - Left Main (LM): Heavily calcified. Distal segment 60-70% stenosis. - Left Anterior Descending (LAD): Heavily calcified. Proximal 80-90% stenosis and aneurysmal dilation, followed by 100% PRINCIPAL RESEARCH ECONOMIST after first major septal. Vessel is supplied distally via patent [place]-LAD graft. - Left Circumflex (LCx): Chronically occluded at the ostium. Supplied distally via diseased SVG-OM1 graft. - Right Coronary Artery (RCA): There is severe diffuse, heavily calcified disease, followed by aneurysmal dilation and a long segment 100% PRINCIPAL RESEARCH ECONOMIST extending to the AV continuation. A large AM branch supplies robust epicardial collaterals to the R-PDA. Couuh-xh-qefpr collaterals supply several small RPL branches. - Grafts: [place]-LAD: Patent. Supplies mid to distal LAD and D2, which is a moderate size branching vessel supplying collaterals to D1 with competitive flow noted. There is severe [place] tortuosity. SVG-RCA: 100% aorto-ostial occlusion. SVG-OM1: Proximal segment 90% in-stent restenosis. Degenerative appearing graft with aneurysmal component. Supplies a large branching OM1 antegradely, which supplies 2 moderately sized OM branches via xrox-fx-uiht collaterals as well as collaterals to D1. Physical Exam: GEN: Alert, oriented, NAD CV: Regular rate and rhythm, systolic murmur Pulm:Nonlabored respirations on room air, clear bilaterally ABD: soft, nontender, nondistended Neuro: Normal speech, normal affect Vital Signs/Physical Exam: Temp Pulse Resp BP Pulse Ox 98 F 66 16 107/75 94 01/21/25 04:00 01/21/25 11:35 01/21/25 11:35 01/21/25 11:35 01/21/25 04:00 Laboratory Data at Discharge: WBC 7.90 thou/uL (4.3-10.9) 01/20/25 06:40 Hgb 15.2 g/dL (13.6-17.9) 01/20/25 06:40 Hct 44.0 % (39.6-49.0) 01/20/25 06:40 Plt Count 153 thou/uL (152-406) 01/20/25 06:40 PT 12.1 SECONDS (10-13.0) 01/18/25 23:15 INR 1.07 01/18/25 23:15 Sodium 138 mEq/L (136-145) 01/20/25 06:40 Potassium 4.1 mEq/L (3.5-5.1) 01/20/25 06:40 BUN 18 mg/dL (7-18) 01/20/25 06:40 Creatinine 0.91 mg/dL (0.70-1.30) 01/20/25 06:40 Glucose 94 mg/dL (74-106) 01/20/25 06:40 Magnesium 2.3 mg/dL (1.6-2.4) 01/18/25 23:15 Total Bilirubin 0.6 mg/dL (0.2-1.0) 01/20/25 06:40 AST 16 U/L (15-37) 01/20/25 06:40 ALT 38 U/L (16-61) 01/20/25 06:40 Alkaline Phosphatase 89 U/L (45-117) 01/20/25 06:40 Home Medications: Metoprolol Tartrate [Lopressor*] 25 mg PO BID 06/23/15 Aspirin [Children's Aspirin] 81 mg PO DAILY 01/19/25 Clopidogrel Bisulfate [Plavix*] 75 mg PO DAILY 01/19/25 Simvastatin 80 mg PO BEDTIME 01/19/25 lisinopriL [Lisinopril] 5 mg PO DAILY 01/19/25 methocarbamoL [Robaxin*] 750 mg PO BIDP PRN 01/19/25 Pregabalin [Lyrica] 50 mg PO BID #60 cap 01/20/25 dexAMETHasone [Dexamethasone] 2 mg PO Q12H #10 tab 01/20/25 New Medications: dexAMETHasone [Dexamethasone] 2 mg PO Q12H #10 tab Pregabalin [Lyrica] 50 mg PO BID #60 cap Physician Discharge Instructions: Physician discharge instructions: Patient presented with left-sided chest discomfort. Troponins were negative x4. EKG in ED showed SR with RBBB. 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 Cardiology was consulted. Dr. Whipple had recommended stress test to further evaluate given significant cardiac history including 3vCABG (1994), PCI (2021), and other high risk factors. Stress test performed 01/20 showed mild stress-induced ischemia suspected involving the LV apex and lateral wall. +Fixed defect is seen along the inferior wall favored to represent scarring from prior infarct. Patient was made NPO and taken to pathology laboratory aide for left heart catheterization on 01/21 however procedure was aborted. During the procedure SVG-OM had severe in- stent restenosis and covered a large territory. Dr. Whipple recommended transfer to tertiary level of care facility for high risk PCI as we do not have embolic protection device that is required for this procedure in our pathology laboratory aide. Initiated transfer to [facility] on 01/21 for high risk PCI. Coronary Findings: - Right dominant system. - Left Main (LM): Heavily calcified. Distal segment 60-70% stenosis. - Left Anterior Descending (LAD): Heavily calcified. Proximal 80-90% stenosis and aneurysmal dilation, followed by 100% PRINCIPAL RESEARCH ECONOMIST after first major septal. Vessel is supplied distally via patent [place]-LAD graft. - Left Circumflex (LCx): Chronically occluded at the ostium. Supplied distally via diseased SVG-OM1 graft. - Right Coronary Artery (RCA): There is severe diffuse, heavily calcified disease, followed by aneurysmal dilation and a long segment 100% PRINCIPAL RESEARCH ECONOMIST extending to the AV continuation. A large AM branch supplies robust epicardial collaterals to the R-PDA. Wwfaj-wd-pgmos collaterals supply several small RPL branches. - Grafts: [place] TORRE-LAD: Patent. Supplies mid to distal LAD and D2, which is a moderate size branching vessel supplying collaterals to D1 with competitive flow noted. There is severe [place] T[place] tortuosity. SVG-RCA: 100% aorto-ostial occlusion. SVG-OM1: Proximal segment 90% in-stent restenosis. Degenerative appearing graft with aneurysmal component. Supplies a large branching OM1 antegradely, which supplies 2 moderately sized OM branches via [id number]-bv-mjzi collaterals as well as collaterals to D1. OK TO DC IV AND DC HOME FOLLOW-UP WITH PRIMARY CARE PROVIDER IN 1-2 WEEKS FOLLOW-UP WITH CARDIOLOGY IN 1-2 WEEKS RETURN TO THE ER IF CALL DR. GARCIA AT [phone] IF ANY QUESTIONS REGARDING HOSPITAL STAY. PLEASE CALL THE FLOOR AT [phone] IF ANY MEDICATION OR NURSING QUESTIONS. Diet: AHA Activity: Fall precautions Followup: Berto Llanes MD [Primary Care Provider] - Time spent managing pt's care (in minutes): 45
--- NOTE | 2025-01-21 14:17 | P.OP ---
Date of Service: 01/21/25 Procedures Performed: Coronary angiography Graft angiography Left heart catheterization Moderate sedation Indication: Unstable angina Abnormal result of cardiovascular function study, unspecified Atherosclerotic heart disease of [place] coronary artery with unspecified angina pectoris Atherosclerosis of coronary artery bypass graft(s), unspecified, with unspecified angina pectoris Pre-procedure Diagnosis: Unstable angina. Post-procedure Diagnosis: Atherosclerosis of coronary artery bypass graft(s), unspecified, with unspecified angina pectoris. Consent: Informed consent was obtained after discussion of risks, benefits, and alternatives. Sedation and Anesthesia: ASA Classification II. Moderate sedation was provided using IV midazolam 1 mg and IV fentanyl 25 mcg. Sedation began at 8:25 AM and ended at 9:07 AM, for a total duration of 43 min. Continuous hemodynamic, respiratory, pulse oximetry, and level of consciousness monitoring was performed throughout the procedure in accordance with hospital policy. The patient tolerated sedation well without adverse events. Procedure Description: The patient was prepped and draped in the usual sterile fashion, and a procedural time-out confirmed patient identity, procedure, and site. Vascular access was obtained via the left radial artery using a 6 [place] sheath. A 6 [facility] IM catheter was advanced to the left subclavian over a baby J wire under fluoroscopic guidance, and [place] TORRE angiography was performed. A 6 [place] JR4 diagnostic catheter was then exchanged over a wire under fluoroscopic guidance, and advanced to the left ventricle, left heart catheterization was performed, and the LVEDP was measured at 2 mmHg. The catheter was slowly pulled back across the aortic valve and trans-aortic gradient was approximately 10-15 mmHg. Selective RCA coronary angiography was performed. The JR4 catheter was also used to image the SVG grafts, after which the catheter was exchanged for a 6 [place] JL 4 catheter and selective angiography of the LM, LAD, and LCx arteries was obtained in standard projections. At the conclusion of the procedure all catheters and the sheath were removed, hemostasis was achieved with TR band, and the patient tolerated the procedure without immediate complications. Coronary Findings: - Right dominant system. - Left Main (LM): Heavily calcified. Distal segment 60-70% stenosis. - Left Anterior Descending (LAD): Heavily calcified. Proximal 80-90% stenosis and aneurysmal dilation, followed by 100% HAND BUFFER after first major septal. Vessel is supplied distally via patent [place] TORRE-LAD graft. - Left Circumflex (LCx): Chronically occluded at the ostium. Supplied distally via diseased SVG-OM1 graft. - Right Coronary Artery (RCA): There is severe diffuse, heavily calcified disease, followed by aneurysmal dilation and a long segment 100% HAND BUFFER extending to the AV continuation. A large AM branch supplies robust epicardial collaterals to the R-PDA. Pjnmv-nb-jlbnv collaterals supply several small RPL branches. - Grafts: DE LA TORRE-LAD: Patent. Supplies mid to distal LAD and D2, which is a moderate size branching vessel supplying collaterals to D1 with competitive flow noted. There is severe DE LA TORRE tortuosity. SVG-RCA: 100% aorto-ostial occlusion. SVG-OM1: Proximal segment 90% in-stent restenosis. Degenerative appearing graft with aneurysmal component. Supplies a large branching OM1 antegradely, which supplies 2 moderately sized OM branches via [id number]-ht-[id number] collaterals as well as collaterals to D1. Complications: None. Estimated Blood Loss: <10 mL. Post-procedure Plan: The patient will be monitored in the recovery area per protocol. Continue guideline-directed medical therapy including aspirin and statin. Stop clopidogrel, and load with ticagrelor 180 mg. Transferred to a tertiary care center for high risk PCI of SVG-OM, with available embolic protection device and CT surgery backup. Aggressive lifestyle and risk factor modification.
== END 2025-01-21 13:17 | disposition home or self-care (01) | DRG 287 ==
LOC: ER 22:42 → 4TH 01-19 04:41
PROVIDERS: ADMIT Family Medicine; ATTEND Hospitalist
PROC: 4A023N7 Measurement of Cardiac Sampling and Pressure, Left Heart, Percutaneous Approach (ICD-10-PCS; principal; 2025-01-21)
PROC: B2111ZZ Fluoroscopy of Multiple Coronary Arteries using Low Osmolar Contrast (ICD-10-PCS; 2025-01-21)
PROC: B21F1ZZ Fluoroscopy of Other Bypass Graft using Low Osmolar Contrast (ICD-10-PCS; 2025-01-21)
DX: I25.709 Atherosclerosis of coronary artery bypass graft(s), unspecified, with unspecified angina pectoris (principal); E78.00 Pure hypercholesterolemia, unspecified; I10 Essential (primary) hypertension; N28.1 Cyst of kidney, acquired; I71.9 Aortic aneurysm of unspecified site, without rupture; I45.10 Unspecified right bundle-branch block; K76.0 Fatty (change of) liver, not elsewhere classified; N40.0 Benign prostatic hyperplasia without lower urinary tract symptoms; I67.1 Cerebral aneurysm, nonruptured; K40.90 Unilateral inguinal hernia, without obstruction or gangrene, not specified as recurrent; I25.2 Old myocardial infarction; R01.1 Cardiac murmur, unspecified; Z95.1 Presence of aortocoronary bypass graft; Z95.5 Presence of coronary angioplasty implant and graft; Z79.02 Long term (current) use of antithrombotics/antiplatelets; Z79.82 Long term (current) use of aspirin; Z79.899 Other long term (current) drug therapy; Z87.891 Personal history of nicotine dependence
CPT/HCPCS: 36415; 71275; 72125; 72141; 74175; 76937; 78452; 80048; 80053; 80076; 83735; 83880; 84484; 85025; 85610; 93005; 93017; 93459; 96360; 96361; 99152; 99153; 99285; A9500; C1887; C1893; J0461; J1644; J2003; J2250; J2785; J3010; J7040; Q9966; Q9967